=== PATIENT | female | born 1950 | race Caucasian/White ===

== ENCOUNTER → 2022-02-15 13:19 | Outpatient (BNVA) | payer MEDICARE, SELFPAY | PROVIDERS: PCP Nurse Practitioner Family; Visit Provider Internal Medicine Cardiovascular Disease | DX: R06.02 Shortness of breath (principal); R07.9 Chest pain, unspecified; I25.10 Atherosclerotic heart disease of native coronary artery without angina pectoris; F17.210 Nicotine dependence, cigarettes, uncomplicated; I10 Essential (primary) hypertension | CPT/HCPCS: 99204 ==

== ENCOUNTER 2022-03-28 13:23 | Outpatient (CLI) | payer MEDICARE, SELFPAY ==
--- NOTE | 2022-03-28 14:15 | USCV_ITS ---
Selin Parsons Age: 71 Gender: F : 1950 Exam Date: 03/28/2022 13:37 Ordering Phys: Miley Adames MD ([email or web address]) Technologist: Yuridia Bran Exam Location: [facility] [place] Indication: Coronary artery disease, chest pain, shortness of breath BP: 130 / 70 HR: 69 Rhythm: Sinus Technical Quality: Adequate MEASUREMENTS (Male / Female) Normal Values 2D ECHO LV Diastolic Diameter PLAX 4.2 cm 4.2 - 5.9 / 3.9 - 5.3 cm LV Systolic Diameter PLAX 3.3 cm LV Chamber Size 3.7 cm IVS Diastolic Thickness 0.8 cm 0.6 - 1.0 / 0.6 - 0.9 cm IVS Systolic Thickness 1.1 cm LVPW Diastolic Thickness 1.4 cm 0.6 - 1.0 / 0.6 - 0.9 cm LVPW Systolic Thickness 1.7 cm RV Chamber Size 2.2 cm LVOT Diameter 2.0 cm LV Ejection Fraction 2D Teich 45.3 % LV Ejection Fraction MOD 2C 60.7 % LV Ejection Fraction 2C AL 60.1 % LA Diameter 4.1 cm LA Width 3.0 cm LA Height 4.1 cm RA Width 3.1 cm RA Height 3.5 cm Aorta at Sinotubular Diameter 2.4 cm IVC Diameter 1.8 cm M-MODE Aortic Annulus Diameter 3.4 cm LA Ao Ratio MM 1.4 MV E Point Septal Separation 0.9 cm DOPPLER AV Peak Velocity 120.0 cm/s LVOT Peak Velocity 77.0 cm/s AV Area Cont Eq vti 2.0 cm squared AV Area Cont Eq pk 2.0 cm squared MV Area PHT 3.9 cm squared Mitral E to A Ratio 0.7 MV E' Velocity 32.5 cm/s Mitral E to MV E' Ratio 6.5 Mitral E to LV E' Lateral Ratio 6.4 Mitral E to LV E' Septal Ratio 6.7 TR Peak Velocity 126.8 cm/s TR Peak Gradient 6.4 mmHg TR Mean Velocity 86.3 cm/s TR Mean Gradient 3.3 mmHg TR Velocity Time Integral 27.9 cm TV Peak E Velocity 60.0 cm/s Right Atrial Pressure 3.0 mmHg Pulmonary Artery Systolic Pressu 9.4 mmHg RV Acceleration Time 0.1 s RV Ejection Time 0.3 s RV AcT/ET 0.3 FINDINGS Left Ventricle Normal left ventricular size, systolic function and wall thickness, with no regional wall motion abnormalities. Left ventricular ejection fraction is estimated at 55 %. Grade I diastolic dysfunction (abnormal relaxation filling pattern), normal to mildly elevated filling pressures. Right Ventricle Normal right ventricular size and systolic function. Normal right ventricular systolic pressure. Right Atrium Normal right atrial size. Left Atrium Upper normal left atrial size. Mitral Valve Mild mitral annular calcification. Mildly thickened mitral valve. No mitral valve stenosis. No significant mitral valve regurgitation. Aortic Valve Aortic valve not well visualized. No aortic valve stenosis. No aortic valve regurgitation. Tricuspid Valve Structurally normal tricuspid valve. No tricuspid valve stenosis. Trace tricuspid valve regurgitation. Pulmonic Valve Pulmonic valve not well visualized. Pericardium No pericardial effusion. Aorta Normal size aortic root and proximal ascending aorta. IVC Normal IVC dimension with >50% respiratory change of the inferior vena cava. CONCLUSIONS 1. Normal left ventricular size, systolic function and wall thickness, with no regional wall motion abnormalities. Left ventricular ejection fraction is estimated at 55 %. Grade I diastolic dysfunction (abnormal relaxation filling pattern), normal to mildly elevated filling pressures. 2. Normal right ventricular size and systolic function. 3. Trace tricuspid valve regurgitation. 4. No prior similar studies to compare. Miley Adames MD (Electronically Signed) Final Date: 30 March 2022 13:52 S
== END 2022-03-28 13:24 | disposition home or self-care (01) ==
LOC: RAD 13:23
PROVIDERS: PCP Nurse Practitioner Family; Visit Provider Internal Medicine Cardiovascular Disease
DX: I25.10 Atherosclerotic heart disease of native coronary artery without angina pectoris (principal); R07.9 Chest pain, unspecified; R06.02 Shortness of breath
CPT/HCPCS: 93306

== ENCOUNTER 2022-07-19 06:59 | Outpatient (CLI) | payer MEDICARE, MEDICAID, SELFPAY ==
[2022-07-19 07:16] VITALS: BMI 29.6
--- NOTE | 2022-07-19 08:02 | ECG_ITS ---
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 Interpretive Statements NAME OF STUDY: LEXISCAN SESTAMIBI STRESS TEST INDICATION: Sob/cp/cad, PROCEDURE: At the baseline, the EKG revealed. The baseline heart was 59 bpm with a blood pressue of 146/82 mm of Hg Lexiscan was infused over a period of 20 seconds. A total of 0.4 milligrams of Lexiscan was infused. The stress phase was continued for a total of 5 minutes. Heart rate at the end of the stress phase was 81 bpm with a blood pressure 158/97 mm of Hg. The EKG at the peak infusion revealed no significant changes. Sestamibi was injected 20 seconds after the Lexiscan infusion. Heart rate at the end of the recovery phase was 76 bpm with a blood pressure of 174/92 mm of Hg. CONCLUSION: 1. No significant EKG changes with the LexiScan infusion 2. No LexiScan induced chest pain or cardiac arrhythmia 3. Normal blood pressure and heart rate response 4. Sestamibi/sestamibi perfusion scan pending; see separate report. Electronically Signed On 07-24-2022 16:47:37 CDT by Sushma Gil M.D. [email or web address]
--- NOTE | 2022-07-19 08:02 | NMCV_ITS ---
NM arnaldo perf SPECT r/s* [id number] Selin Parsons Age: 72 Gender: F : 1950 Exam Date: 07/19/2022 08:49 Ordering Phys: Miley Adames MD ([email or web address]) Technologist: JULIAN Marin Exam Location: [facility] Indications: CHEST PAIN, SHORTNESS OF BREATH, ATHEROSCLEROTIC HEART DISEASE STRESS TEST Please see separate stress test report in [facility] for full findings IMAGE PROTOCOL Rest/Stress 1 Lexiscan Day Radiopharmaceutical Dose (mCi) Administration Site Administered by Rest: Tc-99m 10.3 IV JULIAN Mckoy Sestamibi Stress:Tc-99m 32.6 IV JULIAN Mckoy Sestamibi Rest: 19-Jul-2022 60 Discovery 630 Stress: 19-Jul-2022 30 Discovery 630 0.4mg Lexiscan. Images obtained in supine and prone position. SPECT RESULTS Technical Quality: Excellent Raw Data Analysis: Normal Image Corrections: No attenuation or motion correction applied Summed Stress Score: 0 Summed Rest Score: 0 Summed Difference Score: 0 PERFUSION FINDINGS Fairly uniform myocardial tracer uptake with no significant perfusion normalities FUNCTIONAL RESULTS (calculated via Gated SPECT) Stress Image LV EF (%): 68 Stress EDV (mL):85 TID: 0.96 Stress ESV (mL):27 FUNCTIONAL FINDINGS: Segmental wall motion analysis revealing no gross wall motion abnormalities IMPRESSIONS 1. Unremarkable Myocardial perfusion imaging 2. Normal LV ejection fraction of 60%. 3. LV wall motion analysis revealing no gross wall motion abnormalities.. 4. Normal LV volume. Low probability for coronary ischemia, based on the above findings Dr Sushma Gil MD FACC (Electronically Signed) Final Date: 19 July 2022 17:28 S
[2022-07-19] MEDS: regadenoson 0.4 Mg/5 ml Syringe IVP (09:17)
[2022-07-19 09:33] VITALS: BP 174/92; PULSE 79
== END 2022-07-19 07:00 | disposition home or self-care (01) ==
PROVIDERS: PCP Nurse Practitioner Family; Visit Provider Internal Medicine Cardiovascular Disease
DX: R06.02 Shortness of breath (principal); R07.9 Chest pain, unspecified; I51.9 Heart disease, unspecified
CPT/HCPCS: 36415; 78452; 93017; 96374; A9500; J2785

== ENCOUNTER 2023-03-24 10:17 | Oncology outpatient (recurring) (ONCR) | payer MEDICARE, OTHER, SELFPAY ==
[2023-03-24 12:15] LABS: Basophils # 0.1 10^3/uL (0.0-0.1); Basophils % 0.6 %; Eosinophils # 0.2 10^3/uL (0.0-0.8); Eosinophils % 1.5 %; Hematocrit 45.4 % (36-47); Lymphocytes # 2.6 10^3/uL (0.8-4.8); Lymphocytes % 15.6 %; Mean Corpuscular HGB Conc 32.4 g/dL (30-55); Mean Corpuscular Volume 98.7 fl (85-98); Mean Platelet Volume 9.5 fL (7.4-10.4); Monocytes # 1.1 10^3/uL (0.2-0.9); Monocytes % 6.6 %; Neutrophils # 12.42 10^3/uL (1.8-7.7); Nucleated Red Blood Cells % 0 %; Platelet Count 457 10^3/cmm (157-399); Red Cell Distribution Width 13.2 % (12.1-15.1); White Blood Count 16.55 10^3/uL (3.29-11.43)
[2023-03-24 12:17] LABS: Reticulocyte % 2.1 % (0.5-2.0)
[2023-03-24 12:44] LABS: Alanine Aminotransferase < 5 U/L (0-33); Albumin Level 3.9 g/dL (3.5-5.2); Alkaline Phosphatase 98 U/L (35-105); Aspartate Amino Transferase 20 U/L (0-32); Blood Urea Nitrogen 14 mg/dL (8-23); Calcium 9.5 mg/dL (8.5-10.5); Carbon Dioxide 23 mmol/L (22-29); Chloride 105 mmol/L (98-107); Ferritin 15 ng/mL (15-150); Glucose 151 mg/dL (65-115); Iron 73 ug/dL (37-145); Lactate Dehydrogenase 160 U/L (135-214); Osmolality Calculated 291 mOsm/kg (285-295); Percent Saturation 27.1 % (20-50); Sodium 139 mmol/L (136-145); Thyroid Stimulating Hormone 1.74 uIU/mL (0.27-4.20); Total Bilirubin 0.3 mg/dL (0.15-1.2); Total Iron Binding Capacity 269 mcg/dl; Total Protein 6.9 g/dL (6.6-8.7); Unsaturated Iron Binding 196 ug/dL (112-347); Vitamin B12 480 pg/mL (232-1245)
[2023-03-24 12:46] LABS: Folate Level 15.7 ng/mL (4.8-37.3)
[2023-03-24 12:54] LABS: LAB Peripheral Smear Sent for Review
[2023-03-24 13:04] LABS: Immunoglobulin IGA 344 mg/dL (70-400); Immunoglobulin IGG 804 mg/dL (700-1600); Immunoglobulin IGM 65 mg/dL (40-230)
[2023-03-27 12:45] LABS: Leukemia Profile (BBPL) See Report; Lymphoma Profile (BBPL) See Report
[2023-03-28 14:09] LABS: Methylmalonic Acid 192 nmol/L (87-318)
[2023-03-28 17:00] LABS: Soluble Transferrin Receptor 1.28 mg/L (0.76-1.76)
[2023-03-30 21:54] LABS: P210 BCR ALB1 NOT DETECTED; P210 BCR ALB1 Yes Test Yes; Prior Results NG; Source blood
== END 2023-04-09 23:59 | disposition home or self-care (01) ==
PROVIDERS: PCP Nurse Practitioner Family; Visit Provider Internal Medicine
DX: D72.829 Elevated white blood cell count, unspecified (principal); J44.9 Chronic obstructive pulmonary disease, unspecified; K21.9 Gastro-esophageal reflux disease without esophagitis; E11.9 Type 2 diabetes mellitus without complications; F17.209 Nicotine dependence, unspecified, with unspecified nicotine-induced disorders
CPT/HCPCS: 36415; 80053; 81206; 82607; 82728; 82746; 82784; 83540; 83550; 83615; 83921; 84238; 84443; 85025; 85045; 88184; 88185; 99204

== ENCOUNTER 2023-05-09 13:44 | Oncology outpatient (recurring) (ONCR) | payer MEDICARE, MEDICAID, SELFPAY ==
[2023-05-16 13:10] LABS: CALR Exon 9 Mutation NOT DETECTED (NOT DETECTED); CSF3R Exon 14/17 Mutation NOT DETECTED (NOT DETECTED); JAK2 Exon 12 Mutation NOT DETECTED (NOT DETECTED); JAK2 V617 Block Specimen ID NG; JAK2 V617 Clinical Indication NG; JAK2 V617 Mutation NOT DETECTED (NOT DETECTED); JAK2 V617 Specimen Source NG; MPL Exon 12 Mutation NOT DETECTED (NOT DETECTED)
== END 2023-05-10 23:59 | disposition home or self-care (01) ==
PROVIDERS: PCP Nurse Practitioner Family; Visit Provider Internal Medicine
DX: D72.829 Elevated white blood cell count, unspecified (principal); J44.9 Chronic obstructive pulmonary disease, unspecified; K21.9 Gastro-esophageal reflux disease without esophagitis; E11.9 Type 2 diabetes mellitus without complications; F17.209 Nicotine dependence, unspecified, with unspecified nicotine-induced disorders; E61.1 Iron deficiency; R94.6 Abnormal results of thyroid function studies
CPT/HCPCS: 36415; 71271; 81270; 81279; 81339; 81479

== ENCOUNTER 2023-05-09 14:30 | Outpatient (CLI) | payer MEDICARE, MEDICAID, SELFPAY ==
--- NOTE | 2023-05-09 14:30 | CT_ITS ---
WS: [id number] LDCT LUNG CANCER SCREENING HISTORY: Tobacco use. TECHNIQUE: Axial imaging performed from the apices to 1 cm below the costophrenic angles. Coronal and sagittal reformats are submitted with axial MIP series. All CT scans at [facility] use at least one of these dose optimization techniques: automated exposure control; mA and/or kV adjustment per patient size (includes targeted exams where dose is matched to clinical indication); or iterativ e reconstruction. DLP: 87.60 mGy.cm DIvol: Mean CTDIvol: 2.20 (mGy) COMPARISON: None available. Diagnostic quality: Satisfactory Lungs: Mild elevation and pleural thickening at the LEFT lung base. There is minimal thin linear area s of atelectasis and stranding at the lung bases. No nodule or mass. No endobronchial lesions. Heart: Normal size heart with no pericardial effusion.. Other findings: Very dense, extensive calcification involving all 3 major coronary arteries. Moderate atherosclerosis aorta. Superior pole RIGHT renal cyst 2.5 cm. Mild pancreatic atrophy within the vis ualized pancreas. IMPRESSION: CT/CT lung screening [id number] LUNG-RADS: 1-Negative FOLLOW UP: 12 Month: Continue annual screening with LDCT OTHER FINDINGS (S MODIFIER): None.
== END 2023-05-09 14:31 | disposition home or self-care (01) ==
LOC: RAD 14:30
PROVIDERS: PCP Nurse Practitioner Family; Visit Provider Internal Medicine Medical Oncology
DX: Z12.2 Encounter for screening for malignant neoplasm of respiratory organs (principal); F17.209 Nicotine dependence, unspecified, with unspecified nicotine-induced disorders
CPT/HCPCS: 71271

== ENCOUNTER 2023-09-19 08:10 | Oncology outpatient (recurring) (ONCR) | payer MEDICARE, MEDICAID, SELFPAY ==
[2023-09-19 08:28] LABS: Basophils # 0.1 10^3/uL (0.0-0.1); Basophils % 0.7 %; Eosinophils # 0.3 10^3/uL (0.0-0.8); Eosinophils % 2.3 %; Hematocrit 41.9 % (36-47); Lymphocytes # 2.1 10^3/uL (0.8-4.8); Lymphocytes % 17.1 %; Mean Corpuscular HGB Conc 32.5 g/dL (30-55); Mean Corpuscular Volume 101.7 fl (85-98); Mean Platelet Volume 9.6 fL (7.4-10.4); Monocytes # 0.8 10^3/uL (0.2-0.9); Monocytes % 6.7 %; Neutrophils % 72.6 %; Nucleated Red Blood Cells % 0 %; Platelet Count 371 10^3/cmm (157-399); Red Blood Count 4.12 10^6/uL (3.85-5.65); Red Cell Distribution Width 13.7 % (12.1-15.1)
[2023-09-19 08:46] LABS: Alanine Aminotransferase 8 U/L (0-33); Albumin Level 3.8 g/dL (3.5-5.2); Alkaline Phosphatase 134 U/L (35-105); Anion Gap 12.7 (5-19); Aspartate Amino Transferase 28 U/L (0-32); Blood Urea Nitrogen 15 mg/dL (8-23); Calcium 9.1 mg/dL (8.5-10.5); Carbon Dioxide 27 mmol/L (22-29); Chloride 104 mmol/L (98-107); Ferritin 8 ng/mL (15-150); Globulin 2.9 g/dL (1.3-4.6); Glucose 169 mg/dL (65-115); Iron 112 ug/dL (37-145); Osmolality Calculated 293 mOsm/kg (285-295); Percent Saturation 46.8 % (20-50); Potassium 4.7 mmol/L (3.5-5.1); Sodium 139 mmol/L (136-145); Total Bilirubin 0.3 mg/dL (0.15-1.2); Total Iron Binding Capacity 239 mcg/dl; Total Protein 6.7 g/dL (6.6-8.7); Unsaturated Iron Binding 127 ug/dL (112-347)
[2023-09-24 11:49] LABS: Copper Level 109 mcg/dL (70-175)
== END 2023-10-08 23:59 | disposition home or self-care (01) ==
PROVIDERS: PCP Nurse Practitioner Family; Visit Provider Internal Medicine
DX: Z53.9 Procedure and treatment not carried out, unspecified reason; D72.829 Elevated white blood cell count, unspecified; J44.9 Chronic obstructive pulmonary disease, unspecified; E11.9 Type 2 diabetes mellitus without complications
CPT/HCPCS: 36415; 80053; 82525; 82728; 83540; 83550; 85025; 99213